=== PATIENT | female | born 1990 | race Caucasian/White ===

== ENCOUNTER 2017-07-09 16:46 | Observation (INO) | payer MEDICAID ==
[~2017-07-09] VITALS: Ht 161.3 cm; Wt 122.9 kg
[~2017-07-09 16:46] MED LIST: ONDA4TAB97 PO; PROM-110 PO
[2017-07-09] MEDS: ACETA/BUTAL/CAFF 325/50/40 TAB PO PRN (17:48)
[2017-07-09 17:58] LABS: PLATELET COUNT, AUTOMATED 224 K/uL (150-450)
--- NOTE | 2017-07-09 18:06 | History & Physical ---
History of Present Illness Age of Patient: 26 : 1 Para or TPAL: 0000 EDC per LMP: Aug 13, 2017 Estimated Gestational Age: 35 Chief Complaint headache History of Present Illness The patient is a 26 year old 1 para 0000 admitted at 35 weeks estimated gestational age with an estimated date of delivery 08/13/17 . Patient is admitted with complaint of headache . No vaginal bleeding. Good movement and occasional contractions. She was evaluated for active labor. She had course uncomplicated prior to last evening when her headache started. She noeted floaters starting 2 hours [employer]. She had tried tylenol without relief and went to office where her blood pressure was 152/86. Her record was reviewed. History Allergies: Uncoded Allergies: CEPHCIL (Adverse Reaction, Unknown, 01/16/17) VOMITING Med Rec Home Meds Active Scripts Promethazine Hcl (PROMETHAZINE HCL) 25 Mg Tablet, 25 MG PO Q8H Y for NAUSEA/ VOMITING, #12 TAB Prov:CIRILO SCHULTE PA-C 01/16/17 Reported Medications Ondansetron Hcl (ZOFRAN) 4 Mg Tablet, 4 MG PO PRN, TAB 01/16/17 Review of Systems Constitutional: No Fever, No Weight Loss Neurological: No Syncope, No Confusion Eyes: No Vision Change, No Loss of Vision ENT: No Hearing Loss, No Sinus Congestion Cardiovascular: No Chest Pain, No Palpitations Respiratory: No Shortness of Breath, No Cough Gastrointestinal: No Nausea, No Vomiting Genitourinary: No Dysuria, No Hematuria Musculoskeletal: No Pain, No Sprain Psychiatric: No Depression, No Anxiety Exam General Exam General Apperance: Alert/Awake/No Acute Distress Neuro: No Gross deficits Eyes: Normal Extraocular Movement & Vison Cardiovascular: Regular Rate and Rhythm Respiratory: Clear to Auscultation Abdomen: Gravid - Non-Tender Extremities: Reflexes (2+), Edema (1+) Integumentary: Skin Intact without Lesions or Rash Psychological: Alert & Oriented X3, Appropriate Mood & Affect Uterine Contractions(Q min): 0 Fetus Heart Tones: 140 Heart Tone Variabilty: Moderate FHT Category: I Assessment and Plan Problems: (1) induced hypertension, antepartum Assessment & Plan: Jose Francisco draw labs and asses for sign of preeclampsia, concern with headache may be signs of severe preeclampsia. When get labs will review with OBX. Copies to: SAM HEMPHILL MD, JOHN MD July 09, 2017 18:06
[2017-07-09] MEDS: BETAMETHASONE/ACETATE 6 MG/1ML IM ONLY SCH (18:18)
[2017-07-09 19:09] VITALS: BP 135/91; Ht 161.3 cm; Wt 122.9 kg
--- NOTE | 2017-07-09 21:25 | Labor Progress Note ---
Labor Subjective Progress Notes Subjective HEADACHE IMPROVED Neurological: No Headache Labor Objective Vital Signs Vital Signs Date Time Temp Pulse Resp B/P (MAP) Pulse Ox O2 Delivery O2 Flow Rate FiO2 07/09/17 19:09 99.0 114 18 135/91 (106) Room Air Uterine Contractions(Q min): 0 Fetus Heart Tones: 140 Heart Tone Variabilty: Moderate FHT Accelerations: 15X15 FHT Category: I Other Result Diagram: 07/09/17174907/09/171749 Assessment and Plan Problems: (1) induced hypertension, antepartum Assessment & Plan: BP IMPROVED WITH REST, HEADACHE IMPROVED RECEIVED CELESTONE FOR FLM, WILL RECHECK LABS IN AM SAM HEMPHILL MD July 09, 2017 21:25
[2017-07-09] MEDS ORDERED: MAG HYD/AL HYD/SIMETH 30ML UDC PO PRN (22:55)
[2017-07-10] MEDS: ACETA/BUTAL/CAFF 325/50/40 TAB PO PRN ×4 (00:09→18:55)
[2017-07-10 05:48] LABS: PLATELET COUNT, AUTOMATED 233 K/uL (150-450)
[2017-07-10] MEDS ORDERED: LAMO100T52 PO (08:32)
--- NOTE | 2017-07-10 08:38 | Labor Progress Note ---
Labor Subjective Progress Notes Subjective headache improved with fiorcet, no ruq pain Labor Pain: Comfortable Eyes: No Visual Disturbances Labor Objective Vital Signs Vital Signs Date Time Temp Pulse Resp B/P (MAP) Pulse Ox O2 Delivery O2 Flow Rate FiO2 07/09/17 19:09 99.0 114 18 135/91 (106) Room Air Uterine Contractions(Q min): 5 Uterine Contraction Strength: Mild Fetus Heart Tones: 130 Heart Tone Variabilty: Moderate FHT Category: I General Exam Cardiovascular: Regular Rate and Rhythm Respiratory: Clear to Auscultation Abdomen: Gravid - Non-Tender, RUQ Non-Tender Extremities: Edema (1+) Other Result Diagram: 07/10/1754007/10/17540 Assessment and Plan Problems: (1) induced hypertension, antepartum Assessment & Plan: headache muscle tension type by history improved labs stable , will continue observation SAM HEMPHILL MD July 10, 2017 08:38
[2017-07-10] MEDS ORDERED: ONDANSETRON 4 MG ODT TABDP SL ONE (08:45)
[2017-07-10 09:23] VITALS: BP 133/64
[2017-07-10] MEDS: BETAMETHASONE/ACETATE 6 MG/1ML IM ONLY SCH (18:10)
--- NOTE | 2017-07-10 20:19 | Labor Progress Note ---
Labor Subjective Progress Notes Subjective no headache, says there are floaters but no flashing lights, no RUQ pain. Labor Pain: Comfortable Neurological: No Headache Labor Objective Vital Signs Vital Signs Date Time Temp Pulse Resp B/P (MAP) Pulse Ox O2 Delivery O2 Flow Rate FiO2 07/10/17 09:23 123 20 133/64 (87) 07/09/17 19:09 99.0 Room Air Uterine Contractions(Q min): 0 Fetus Heart Tones: 130 Heart Tone Variabilty: Moderate General Exam Cardiovascular: Regular Rate and Rhythm Respiratory: Clear to Auscultation Abdomen: Gravid - Non-Tender, RUQ Non-Tender Extremities: Reflexes (2+), Edema (2+) Other Result Diagram: 07/10/1754007/10/17540 Assessment and Plan Problems: (1) induced hypertension, antepartum (2) Pre-eclampsia during in third trimester, antepartum Assessment & Plan: no headache, 24 hour urine 366, other labs normal from this am. With the proteinuria present now and history of blood pressures meeting qualification for preeclampsia, the persistent headache is now a concern for a severe feature of preeclampsia. Discussed with Dr. Genao at [facility] and she is willing to accept patient for possible delivery for preeclampsia with a severe feature. Will start magnesium for seizure prophylaxis. Will arrange air transport with need for delivery at [facility] not appropriate for acuity level for [facility]. Copies to: SAM HEMPHILL MD, JOHN MD July 10, 2017 20:19
[2017-07-10] MEDS ORDERED: MAGNESIUM SULF 20 GM/500 ML IV 500 ML IV SCH (20:39)
[2017-07-10] MEDS ORDERED: MAGNESIUM SUL* 4 GM/100 ML BAG 100 ML IVPB ONE (20:40)
[2017-07-10] MEDS ORDERED: CALCIUM GLUC 10% 100 MG/ML VL IVP ONE (20:40)
--- NOTE | 2017-07-10 21:03 | OB/GYN Discharge Summary ---
Discharge Summary Reason for Hosp/Final Diag: (1) induced hypertension, antepartum (2) Pre-eclampsia during in third trimester, antepartum Hospital Course & Plan: Patient with persistent headache unrelieved with Tylenol, improved inpatient with Fiorcet. Initial labs suggested mild gestational hypertension but 24 hour urine and blood pressures met qualifications for preeclampsia and the persistent headaches qualified for severe feature. Discussed with Dr Genao and agreed to transport to [facility] for possible delivery for preeclampsia with severe feature. Ernestine was started on magnesium sulfate, received second dose of Celestone at 1800 on 07/10 and is vertex. Lates Vital Signs Vital Signs Date Time Temp Pulse Resp B/P (MAP) Pulse Ox O2 Delivery O2 Flow Rate FiO2 07/10/17 09:23 123 20 133/64 (87) 07/09/17 19:09 99.0 Room Air Weight (Pounds): 271 Result Diagram: 07/10/17 0541 07/10/17 0541 Condition: No Change Discharge: Other Facility Home Meds Reported Medications Lamotrigine (LAMOTRIGINE) 100 Mg Tablet, 100 MG PO DAILY 07/10/17 Ondansetron Hcl (ZOFRAN) 4 Mg Tablet, 4 MG PO PRN, TAB 01/16/17 Discontinued Scripts Promethazine Hcl (PROMETHAZINE HCL) 25 Mg Tablet, 25 MG PO Q8H Y for NAUSEA/ VOMITING, #12 TAB Prov:CIRILO SCHULTE PA-C 01/16/17 Copies to: SAM HEMPHILL MD, JOHN MD July 10, 2017 21:03
[2017-07-10] MEDS ORDERED: DLR(*) 1000 ML BAG 1,000 ML IV SCH (22:25)
== END 2017-07-10 23:12 | disposition short-term general hospital (02) ==
LOC: OB 16:46
PROVIDERS: ADMIT Obstetrics & Gynecology; ATTEND Obstetrics & Gynecology
DX: O13.3 Gestational [pregnancy-induced] hypertension without significant proteinuria, third trimester (principal); Z3A.35 35 weeks gestation of pregnancy; O14.93 Unspecified pre-eclampsia, third trimester
CPT/HCPCS: 36415; 81001; 82570; 83615; 84156; 84550; 85025; 96372; G0378; G0379; J0702; J3475; S0119; 82040; 82247; 82310; 82374; 82435; 82565; 82947; 84075; 84132; 84155; 84295; 84450; 84460; 84520

== ENCOUNTER → 2017-07-10 | Outpatient (REF) ==
[2017-07-09 19:09] VITALS: BMI 45.3
[~2017-07-10] MED LIST changes: +LAMO100T52 PO
== END ==
LOC: AMB 21:50
PROVIDERS: ATTEND Nurse Practitioner
DX: Z02.9 Encounter for administrative examinations, unspecified (principal)